=== PATIENT | female | born 1950 | race Caucasian/White ===

== ENCOUNTER → 2018-05-30 | Outpatient (CLI) | payer MEDICARE, OTHER ==
[~2018-05-30] MED LIST: BECL8.7A6 INH; DULO30CA2 PO; ESOM40CA PO; MECL25TA2 PO; METH4TAB PO; METO25TA4 PO; MONT10TA9 PO; OMEG1CAP34 PO; ONDA4TAB10 PO; RALO60TA PO; TRAM50TA2 PO
== END | disposition home or self-care (01) ==
LOC: CFH 11:38
PROVIDERS: ATTEND Registered Nurse General Practice
DX: Z12.31 Encounter for screening mammogram for malignant neoplasm of breast (principal); Z12.2 Encounter for screening for malignant neoplasm of respiratory organs; R91.8 Other nonspecific abnormal finding of lung field; R59.1 Generalized enlarged lymph nodes; Z87.891 Personal history of nicotine dependence; J44.9 Chronic obstructive pulmonary disease, unspecified; M79.7 Fibromyalgia
CPT/HCPCS: 77063; 77067; G0297

== ENCOUNTER 2018-06-05 11:04 | Day surgery (SDC) | payer MEDICARE, OTHER ==
[~2018-06-05] VITALS: Ht 168.9 cm; Wt 71.6 kg
[2018-06-05] MEDS ORDERED: SODIUM CHLORIDE 0.9% 1,000 ML IV SCH (11:59)
[2018-06-05] MEDS ORDERED: FENTANYL PF 100 MCG/2ML ONE (12:05)
[2018-06-05] MEDS ORDERED: MIDAZOLAM 1 MG/ML, 5ML ONE (12:05)
[2018-06-05 12:06] VITALS: BP 117/80
[2018-06-05] MEDS ORDERED: PLEASE ENTER HEIGHT AND WEIGHT MC SCH (12:30)
[2018-06-05 12:44] LABS: BASOPHILS # (AUTO) 0.07 x10^3/uL (0-0.1); BASOPHILS % (AUTO) 1 % (0-1); EOSINOPHILS # (AUTO) 0.09 x10^3/uL (0-0.4); EOSINOPHILS % (AUTO) 1 % (1-7); LYMPHOCYTES % (AUTO) 20 % (22-44); MD NO; MEAN CORPUSCULAR HEMOGLOBIN 29.9 pg (27.0-34.8); MEAN CORPUSCULAR HGB CONC 34.1 g/dL (32.4-35.8); MEAN CORPUSCULAR VOLUME 87.4 fL (80-100); MEAN PLATELET VOLUME 7.7 fL (7.4-10.4); MONOCYTES # (AUTO) 0.73 x10^3/uL (0.2-0.8); MONOCYTES % (AUTO) 8 % (2-9); NEUTROPHILS % (AUTO) 71 % (42-75); PLATELET COUNT 462 x10^3/uL (130-400); RED BLOOD COUNT 4.71 x10^6/uL (3.82-5.3); RED CELL DISTRIBUTION WIDTH 16.9 % (9.6-15.2)
[2018-06-05 12:58] LABS: INTERNATIONAL NORMALIZED RATIO 1.03 (0.93-1.1); PROTHROMBIN TIME 10.7 Seconds (9.6-11.5)
[2018-06-05] MEDS ORDERED: LIDOCAINE 4% TOPICAL SOLUTION 50 ML ONE (15:35)
[2018-06-05] MEDS ORDERED: LIDOCAINE GEL 2%, 5ML ONE (15:35)
[2018-06-05] MEDS ORDERED: LIDOCAINE 2%, 20ML ONE (15:35)
== END 2018-06-05 16:50 | disposition home or self-care (01) ==
LOC: OUT 11:04
PROVIDERS: ATTEND Internal Medicine
DX: R91.8 Other nonspecific abnormal finding of lung field (principal); R04.2 Hemoptysis; E78.00 Pure hypercholesterolemia, unspecified; I10 Essential (primary) hypertension; F32.9 Major depressive disorder, single episode, unspecified; G47.30 Sleep apnea, unspecified; K21.9 Gastro-esophageal reflux disease without esophagitis; F41.9 Anxiety disorder, unspecified; F17.210 Nicotine dependence, cigarettes, uncomplicated; J45.909 Unspecified asthma, uncomplicated; Z87.39 Personal history of other diseases of the musculoskeletal system and connective tissue; Z86.73 Personal history of transient ischemic attack (TIA), and cerebral infarction without residual deficits; Z87.442 Personal history of urinary calculi; Z88.1 Allergy status to other antibiotic agents; Z88.8 Allergy status to other drugs, medicaments and biological substances; Z79.899 Other long term (current) drug therapy
CPT/HCPCS: 31625; 36415; 85025; 85610; 85730; 88172; 88173; 88305; 99152; 99153; J2250; J3010; J3490; 31622

== ENCOUNTER → 2018-06-07 | Outpatient (CLI) | payer MEDICARE, OTHER ==
[~2018-06-07] MED LIST changes: +TRIA1CAP3 PO
== END | disposition home or self-care (01) ==
LOC: CARD 12:47
PROVIDERS: ATTEND Internal Medicine
DX: J44.9 Chronic obstructive pulmonary disease, unspecified (principal)
CPT/HCPCS: 94060; 94726; 94729

== ENCOUNTER 2018-06-09 09:39 | Day surgery (SDC) | payer MEDICARE, OTHER ==
[~2018-06-09] VITALS: Ht 167.6 cm; Wt 71.0 kg
[~2018-06-09 09:39] MED LIST changes: -TRIA1CAP3 PO
[2018-06-09] MEDS ORDERED: LACTATED RINGERS 1,000 ML IV SCH (10:07)
[2018-06-09 10:08] VITALS: BP 95/66
[2018-06-09] MEDS ORDERED: TRIA1CAP3 PO (10:57)
[2018-06-09] MEDS ORDERED: MIDAZOLAM 1 MG/ML, 2ML ONE (11:40)
[2018-06-09] MEDS ORDERED: FENTANYL PF 250 MCG/5ML ONE (11:40)
[2018-06-09] MEDS ORDERED: SUGAMMADEX 200 MG/2 ML IVPush ONE (13:00)
[2018-06-09] MEDS ORDERED: MEPERIDINE/PF 25MG/0.5ML IVPush PRN (14:00)
[2018-06-09] MEDS ORDERED: FENTANYL PF 100 MCG/2ML IV PRN (14:00)
[2018-06-09] MEDS ORDERED: PROMETHAZINE 25 MG/ML, 1ML IV PRN (14:00)
[2018-06-09] MEDS ORDERED: OXYcodone 5 MG/5 ML ORAL.SOL UDC PO PRN (14:00)
[2018-06-09] MEDS ORDERED: HYDROmorphone 1 MG/ML, 1ML IV PRN (14:00)
[2018-06-09] MEDS ORDERED: KETOROLAC 30 MG/1 ML IV PRN (14:00)
[2018-06-09] MEDS ORDERED: LABETALOL 5MG/ML, 20ML IV PRN (14:00)
[2018-06-09] MEDS ORDERED: ALBUTEROL SULFATE 2.5 MG/3 ML NPPB PRN (14:00)
[2018-06-09] MEDS ORDERED: hydrALAzine 20 MG/ML, 1ML IV PRN (14:00)
[2018-06-09] MEDS ORDERED: ACETAMINOPHEN 325 MG TABLET PO PRN (14:00)
[2018-06-09] MEDS ORDERED: ALBUTEROL SULFATE 2.5 MG/3 ML ONE (14:15)
[2018-06-09] MEDS ORDERED: ROCURONIUM 10MG/ML,5ML ONE (15:37)
[2018-06-09] MEDS ORDERED: DEXAMETHASONE 4 MG/ML, 1ML ONE (15:37)
[2018-06-09] MEDS ORDERED: SUCCINYLCHOLINE 20 MG/ML, 10ML ONE (15:37)
[2018-06-09] MEDS ORDERED: PROPOFOL 10 MG/ML, 20ML ONE (15:37)
[2018-06-09] MEDS ORDERED: ONDANSETRON 2MG/ML, 2ML ONE (15:37)
[2018-06-09] MEDS ORDERED: METOPROLOL 1 MG/ML, 5ML ONE (15:37)
== END 2018-06-09 17:45 | disposition home or self-care (01) ==
LOC: OUT 09:39
PROVIDERS: ATTEND Internal Medicine
DX: C34.11 Malignant neoplasm of upper lobe, right bronchus or lung (principal); E11.9 Type 2 diabetes mellitus without complications; E78.5 Hyperlipidemia, unspecified; I10 Essential (primary) hypertension; E11.40 Type 2 diabetes mellitus with diabetic neuropathy, unspecified; J45.909 Unspecified asthma, uncomplicated; G47.30 Sleep apnea, unspecified; K21.9 Gastro-esophageal reflux disease without esophagitis; F32.9 Major depressive disorder, single episode, unspecified; F41.9 Anxiety disorder, unspecified; E78.00 Pure hypercholesterolemia, unspecified; Z98.51 Tubal ligation status; Z98.42 Cataract extraction status, left eye; Z98.41 Cataract extraction status, right eye; Z98.890 Other specified postprocedural states; Z87.442 Personal history of urinary calculi; Z86.73 Personal history of transient ischemic attack (TIA), and cerebral infarction without residual deficits; Z87.891 Personal history of nicotine dependence; Z79.899 Other long term (current) drug therapy; Z87.39 Personal history of other diseases of the musculoskeletal system and connective tissue
CPT/HCPCS: 31627; 31628; 31629; 71045; 88172; 88173; 88305; 88341; 88342; 93005; 94640; J0330; J1100; J2250; J2405; J2704; J3010; J7120; J7613; 31632; G0461

== ENCOUNTER → 2018-06-09 | Outpatient (CLI) | payer MEDICARE, OTHER ==
[2018-06-09 12:54] LABS: BASOPHILS # (AUTO) 0.03 x10^3/uL (0-0.1); BASOPHILS % (AUTO) 0 % (0-1); EOSINOPHILS # (AUTO) 0.18 x10^3/uL (0-0.4); EOSINOPHILS % (AUTO) 2 % (1-7); LYMPHOCYTES # (AUTO) 1.59 x10^3/uL (1-3.4); LYMPHOCYTES % (AUTO) 20 % (22-44); MD NO; MEAN CORPUSCULAR HEMOGLOBIN 29.5 pg (27.0-34.8); MEAN CORPUSCULAR HGB CONC 33.2 g/dL (32.4-35.8); MEAN PLATELET VOLUME 8.7 fL (7.4-10.4); MONOCYTES # (AUTO) 0.69 x10^3/uL (0.2-0.8); MONOCYTES % (AUTO) 9 % (2-9); NEUTROPHILS # (AUTO) 5.55 x10^3/uL (1.8-6.8); NEUTROPHILS % (AUTO) 69 % (42-75); PLATELET COUNT 471 x10^3/uL (130-400); RED BLOOD COUNT 4.51 x10^6/uL (3.82-5.3); RED CELL DISTRIBUTION WIDTH 17.4 % (9.6-15.2)
[2018-06-09 12:56] LABS: CHLORIDE 103 mmol/L (98-107)
[2018-06-09 13:13] LABS: ALANINE AMINOTRANSFERASE 19 U/L (12-78); ALBUMIN 3.3 g/dL (3.4-5.0); ALKALINE PHOSPHATASE 74 U/L (45-117); ANION GAP 11 mmol/L (5-15); BILIRUBIN,TOTAL 0.8 mg/dL (0.2-1.0); CALCIUM 9.2 mg/dL (8.5-10.1); CHOL/HDL RATIO 3.6; CHOLESTEROL, TOTAL 182 mg/dL (140-239); CREATININE 1.33 mg/dL (0.55-1.02); HDL CHOL % 27 % (28-40); HDL CHOLESTEROL (DIRECT) 50 mg/dL (40-60); LDL CHOLESTEROL,CALCULATED 105 mg/dL (54-169); LDL/HDL RATIO 2.1 (0.5-3.0); TOTAL PROTEIN 7.4 g/dL (6.4-8.2); TRIGLYCERIDES 136 mg/dL (50-200); VLDL CHOLESTEROL 27 mg/dL (0-25)
[2018-06-09 13:15] LABS: HEMOGLOBIN A1C 5.8 % (4.2-6.3)
== END | disposition home or self-care (01) ==
LOC: CFH 08:25
PROVIDERS: ATTEND Internal Medicine
DX: J18.8 Other pneumonia, unspecified organism (principal); R91.8 Other nonspecific abnormal finding of lung field; R59.0 Localized enlarged lymph nodes; J44.9 Chronic obstructive pulmonary disease, unspecified; Z79.899 Other long term (current) drug therapy
CPT/HCPCS: 36415; 71250; 80053; 80061; 82043; 82306; 83036; 84443; 85025

== ENCOUNTER → 2018-06-15 | Outpatient (CLI) | payer MEDICARE, OTHER ==
[~2018-06-15] MED LIST changes: +TRIA1CAP3 PO
== END | disposition home or self-care (01) ==
LOC: PETCFH 08:17
PROVIDERS: ATTEND Internal Medicine
DX: C79.51 Secondary malignant neoplasm of bone (principal); C78.7 Secondary malignant neoplasm of liver and intrahepatic bile duct; C77.1 Secondary and unspecified malignant neoplasm of intrathoracic lymph nodes; C34.11 Malignant neoplasm of upper lobe, right bronchus or lung; R91.8 Other nonspecific abnormal finding of lung field
CPT/HCPCS: 78815; A9552

== ENCOUNTER → 2018-06-21 | Outpatient (CLI) | payer MEDICARE, OTHER ==
[~2018-06-21] MED LIST changes: +GADOBUTROL 7.5 MMOL/7.5 ML PFS ONE
== END | disposition home or self-care (01) ==
LOC: RAD 12:40
PROVIDERS: ATTEND Nurse Practitioner
DX: R91.8 Other nonspecific abnormal finding of lung field (principal); J44.9 Chronic obstructive pulmonary disease, unspecified; Z88.2 Allergy status to sulfonamides; Z87.891 Personal history of nicotine dependence
CPT/HCPCS: 70553; A9585

== ENCOUNTER → 2018-06-26 | Outpatient (CLI) | payer MEDICARE, OTHER ==
[~2018-06-26] MED LIST changes: -GADOBUTROL 7.5 MMOL/7.5 ML PFS ONE
== END | disposition home or self-care (01) ==
LOC: ROC 07:29
PROVIDERS: ATTEND Radiology Radiation Oncology
DX: C34.90 Malignant neoplasm of unspecified part of unspecified bronchus or lung (principal); J44.9 Chronic obstructive pulmonary disease, unspecified; K21.9 Gastro-esophageal reflux disease without esophagitis; E78.5 Hyperlipidemia, unspecified; Z88.2 Allergy status to sulfonamides
CPT/HCPCS: G0463

== ENCOUNTER 2018-06-28 07:04 | Day surgery (SDC) | payer MEDICARE, OTHER ==
[~2018-06-28] VITALS: Ht 167.6 cm; Wt 70.7 kg
[2018-06-28] MEDS ORDERED: SODIUM CHLORIDE 0.9% 1,000 ML IV SCH (07:41)
[2018-06-28 07:45] VITALS: BP 106/71
[2018-06-28] MEDS ORDERED: PLEASE ENTER HEIGHT AND WEIGHT MC SCH (08:00)
[2018-06-28] MEDS ORDERED: FENTANYL PF 100 MCG/2ML ONE (08:04)
[2018-06-28] MEDS ORDERED: NALOXONE 1 MG/ML, 2ML ONE (08:04)
[2018-06-28] MEDS ORDERED: FLUMAZENIL 0.1 MG/1 ML, 5ML ONE (08:04)
[2018-06-28] MEDS ORDERED: MIDAZOLAM 1 MG/ML, 5ML ONE (08:04)
[2018-06-28] MEDS ORDERED: LIDOCAINE-MPF 2%, 2ML ONE (08:10)
== END 2018-06-28 12:00 | disposition home or self-care (01) ==
LOC: OUT 07:04
PROVIDERS: ATTEND Nurse Practitioner
DX: C34.91 Malignant neoplasm of unspecified part of right bronchus or lung (principal); F32.9 Major depressive disorder, single episode, unspecified; E11.9 Type 2 diabetes mellitus without complications; I10 Essential (primary) hypertension; G62.9 Polyneuropathy, unspecified; J44.9 Chronic obstructive pulmonary disease, unspecified; K21.9 Gastro-esophageal reflux disease without esophagitis; F41.9 Anxiety disorder, unspecified; E78.00 Pure hypercholesterolemia, unspecified; F17.210 Nicotine dependence, cigarettes, uncomplicated; Z87.39 Personal history of other diseases of the musculoskeletal system and connective tissue; Z88.1 Allergy status to other antibiotic agents; Z88.8 Allergy status to other drugs, medicaments and biological substances; Z87.891 Personal history of nicotine dependence; Z87.01 Personal history of pneumonia (recurrent); Z79.899 Other long term (current) drug therapy; Z98.42 Cataract extraction status, left eye; Z98.41 Cataract extraction status, right eye; Z98.51 Tubal ligation status; Z88.2 Allergy status to sulfonamides
CPT/HCPCS: 32405; 71045; 77012; 88305; 99156; 99157; J2250; J3010; J3490; J2310

== ENCOUNTER → 2018-07-06 | Outpatient (CLI) | payer MEDICARE, OTHER ==
[~2018-07-06] MED LIST changes: +GADOBUTROL 10 MMOL/10 ML VIAL ONE
== END | disposition home or self-care (01) ==
LOC: CFH 08:15
PROVIDERS: ATTEND Radiology Radiation Oncology
DX: M51.34 Other intervertebral disc degeneration, thoracic region (principal); D18.09 Hemangioma of other sites; I10 Essential (primary) hypertension
CPT/HCPCS: 72157; A9585

== ENCOUNTER → 2018-07-24 | Outpatient (CLI) | payer MEDICARE, OTHER ==
[~2018-07-24] MED LIST changes: +AMOX1TAB64 PO; +CHOL500045 PO; +DOXY100C2 PO; +FOLI0.4T2 PO; -GADOBUTROL 10 MMOL/10 ML VIAL ONE; +NORT10CA PO; +OSIM80TA PO; +PREG25CA PO
== END | disposition home or self-care (01) ==
LOC: EDSTATUS 07-09 12:49 → ROC 13:00
PROVIDERS: ATTEND Radiology Radiation Oncology
DX: C79.51 Secondary malignant neoplasm of bone (principal); C34.90 Malignant neoplasm of unspecified part of unspecified bronchus or lung; Z88.2 Allergy status to sulfonamides
CPT/HCPCS: G0463

== ENCOUNTER → 2018-08-04 | Outpatient (CLI) | payer MEDICARE, OTHER ==
[2018-08-04 15:58] LABS: ALBUMIN 2.9 g/dL (3.4-5.0); ANION GAP 10 mmol/L (5-15); CALCIUM 7.9 mg/dL (8.5-10.1); CHLORIDE 94 mmol/L (98-107)
[2018-08-04 16:11] LABS: ALANINE AMINOTRANSFERASE 14 U/L (12-78); ALKALINE PHOSPHATASE 78 U/L (45-117); BILIRUBIN,TOTAL 0.6 mg/dL (0.2-1.0); CREATININE 1.59 mg/dL (0.55-1.02); TOTAL PROTEIN 7.1 g/dL (6.4-8.2)
== END | disposition home or self-care (01) ==
LOC: CFH 12:45
PROVIDERS: ATTEND Internal Medicine Hematology & Oncology
DX: Z51.12 Encounter for antineoplastic immunotherapy (principal); C34.11 Malignant neoplasm of upper lobe, right bronchus or lung; C79.51 Secondary malignant neoplasm of bone; C78.7 Secondary malignant neoplasm of liver and intrahepatic bile duct; J44.9 Chronic obstructive pulmonary disease, unspecified; I10 Essential (primary) hypertension; Z87.891 Personal history of nicotine dependence
CPT/HCPCS: 36415; 80053; 84443

== ENCOUNTER → 2018-08-04 | Outpatient (CLI) | payer MEDICARE, OTHER ==
[~2018-08-04] MED LIST changes: -AMOX1TAB64 PO; -DOXY100C2 PO; -FOLI0.4T2 PO; -OSIM80TA PO
== END | disposition home or self-care (01) ==
LOC: STAR 13:13
PROVIDERS: ATTEND Nurse Practitioner Family
DX: C34.11 Malignant neoplasm of upper lobe, right bronchus or lung (principal); C79.51 Secondary malignant neoplasm of bone; C78.7 Secondary malignant neoplasm of liver and intrahepatic bile duct; J44.9 Chronic obstructive pulmonary disease, unspecified
CPT/HCPCS: 93005

== ENCOUNTER 2018-08-18 16:24 | Inpatient (IN) | payer MEDICARE, OTHER ==
[~2018-08-18] VITALS: Ht 167.6 cm; Wt 73.5 kg
[2018-08-18 16:52] LABS: BASOPHILS # (AUTO) 0.06 x10^3/uL (0-0.1); BASOPHILS % (AUTO) 1 % (0-1); EOSINOPHILS # (AUTO) 0.13 x10^3/uL (0-0.4); EOSINOPHILS % (AUTO) 2 % (1-7); LYMPHOCYTES # (AUTO) 1.33 x10^3/uL (1-3.4); LYMPHOCYTES % (AUTO) 23 % (22-44); MD NO; MEAN CORPUSCULAR HEMOGLOBIN 29.6 pg (27.0-34.8); MEAN CORPUSCULAR HGB CONC 34.1 g/dL (32.4-35.8); MEAN CORPUSCULAR VOLUME 86.6 fL (80-100); MEAN PLATELET VOLUME 7.2 fL (7.4-10.4); MONOCYTES # (AUTO) 0.75 x10^3/uL (0.2-0.8); MONOCYTES % (AUTO) 13 % (2-9); NEUTROPHILS % (AUTO) 61 % (42-75); PLATELET COUNT 269 x10^3/uL (130-400); RED CELL DISTRIBUTION WIDTH 14.3 % (9.6-15.2)
[2018-08-18 17:02] LABS: ALBUMIN 3.5 g/dL (3.4-5.0); ANION GAP 5 mmol/L (5-15); CALCIUM 8.3 mg/dL (8.5-10.1); CHLORIDE 98 mmol/L (98-107); CREATININE 1.43 mg/dL (0.55-1.02)
[2018-08-18] MEDS ORDERED: SODIUM CHLORIDE 0.9% 1,000ML IVBOLUS ONE (18:00)
[2018-08-18] MEDS ORDERED: VANCOMYCIN PER PHARMACY MC ONE (20:30)
[2018-08-18] MEDS ORDERED: PIPERACILLIN/TAZO/PMX 3.375GM 50 ML IVPB ONE (20:30)
[2018-08-18] MEDS ORDERED: PHARMACOKINETIC CONSULTATION MC ONE ×2 (20:30→22:00)
[2018-08-18] MEDS ORDERED: VANCOMYCIN 1,400 MG in SODIUM CHLORIDE 0.9% 250 ML IV ONE (20:30)
[2018-08-18] MEDS ORDERED: SODIUM CHLORIDE 0.9% 1,000 ML IV SCH (20:33)
[2018-08-18] MEDS ORDERED: DOXY100C2 PO (20:54)
[2018-08-18] MEDS ORDERED: OSIM80TA PO (20:54)
[2018-08-18] MEDS ORDERED: FOLI0.4T2 PO (20:54)
[2018-08-18] MEDS ORDERED: PREGABALIN 25 MG CAPSULE PO SCH (21:00)
[2018-08-18] MEDS ORDERED: ONDANSETRON 2MG/ML, 2ML IVPush PRN (21:00)
[2018-08-18] MEDS ORDERED: HYDROcodone/APAP 5/325 TABLET PO PRN (21:00)
[2018-08-18] MEDS ORDERED: ACETAMINOPHEN 325 MG TABLET PO PRN (21:00)
[2018-08-18] MEDS ORDERED: morphine SULFATE 10 MG/ML, 1ML IVPush PRN (21:00)
[2018-08-18] MEDS ORDERED: GUAIFENESIN/COD200MG-20MG/10ML LIQUID PO PRN (21:00)
[2018-08-18] MEDS ORDERED: DOCUSATE 100 MG CAPSULE PO PRN (21:00)
[2018-08-18] MEDS ORDERED: VANCOMYCIN PER PHARMACY MC PRN (21:00)
[2018-08-18] MEDS ORDERED: POLYETHYLENE GLYCOL 17 GM PACKET PO PRN (21:00)
[2018-08-18 21:30] VITALS: BP 126/75
[2018-08-18] MEDS ORDERED: PHARMACOKINETIC MONITORING MC PRN (22:00)
[2018-08-18] MEDS ORDERED: DIPHENHYDRAMINE 50 MG/ML, 1ML IVPush ONE (22:30)
[2018-08-18] MEDS: FLUTICASONE FUROATE 200MCG/INH INH SCH (23:07)
[2018-08-18] MEDS: PREGABALIN 25 MG CAPSULE PO SCH (23:07)
[2018-08-18] MEDS: PIPERACILLIN/TAZO/PMX 3.375GM 50 ML IV SCH (23:09)
[2018-08-18] MEDS: FAMOTIDINE 20 MG TABLET PO SCH (23:09)
[2018-08-19 00:15] VITALS: BP 110/60
[2018-08-19 04:54] LABS: ANION GAP 6 mmol/L (5-15); CALCIUM 7.9 mg/dL (8.5-10.1); CHLORIDE 106 mmol/L (98-107)
[2018-08-19 04:55] LABS: CREATININE 1.24 mg/dL (0.55-1.02)
[2018-08-19] MEDS: PIPERACILLIN/TAZO/PMX 3.375GM 50 ML IV SCH ×4 (04:59→23:14)
[2018-08-19] MEDS ORDERED: OMNIPAQUE 350 MG/ML, 100ML BOTTLE ONE (05:34)
[2018-08-19 06:55] VITALS: BP 95/57
[2018-08-19 08:49] VITALS: BP 107/65
[2018-08-19] MEDS: METOPROLOL TARTRATE 25 MG TABLET PO SCH (08:53)
[2018-08-19] MEDS: FLUTICASONE FUROATE 200MCG/INH INH SCH (08:53)
[2018-08-19] MEDS: DULOXETINE 30 MG CAPSULE.DR PO SCH (08:53)
[2018-08-19] MEDS: SENNA/DOCUSATE TABLET PO SCH (08:54)
[2018-08-19] MEDS: NORTRIPTYLINE 10 MG CAPSULE PO SCH (08:54)
[2018-08-19] MEDS: FAMOTIDINE 20 MG TABLET PO SCH ×2 (08:54→21:46)
[2018-08-19 12:31] VITALS: BP 98/64
[2018-08-19] MEDS: ALBUTEROL SULFATE 2.5 MG/3 ML NPPB SCH ×2 (16:35→19:46)
[2018-08-19 18:11] LABS: CLOSTRIDIUM DIFFICILE ANTIGEN NEGATIVE; CLOSTRIDIUM DIFFICILE TOXIN NEGATIVE (Negative)
[2018-08-19 20:37] VITALS: BP 109/65
[2018-08-19] MEDS ORDERED: PREGABALIN 25 MG CAPSULE PO SCH (21:00)
[2018-08-19] MEDS: PREGABALIN 25 MG CAPSULE PO SCH (21:46)
[2018-08-20 02:22] VITALS: BP 107/61
[2018-08-20] MEDS: PIPERACILLIN/TAZO/PMX 3.375GM 50 ML IV SCH ×4 (05:00→22:50)
[2018-08-20 05:24] LABS: BASOPHILS # (AUTO) 0.05 x10^3/uL (0-0.1); BASOPHILS % (AUTO) 1 % (0-1); EOSINOPHILS # (AUTO) 0.09 x10^3/uL (0-0.4); EOSINOPHILS % (AUTO) 2 % (1-7); LYMPHOCYTES # (AUTO) 0.96 x10^3/uL (1-3.4); LYMPHOCYTES % (AUTO) 20 % (22-44); MD NO; MEAN CORPUSCULAR HEMOGLOBIN 29.7 pg (27.0-34.8); MEAN CORPUSCULAR HGB CONC 33.7 g/dL (32.4-35.8); MEAN CORPUSCULAR VOLUME 88.2 fL (80-100); MEAN PLATELET VOLUME 7.5 fL (7.4-10.4); MONOCYTES # (AUTO) 0.59 x10^3/uL (0.2-0.8); MONOCYTES % (AUTO) 13 % (2-9); NEUTROPHILS # (AUTO) 3.04 x10^3/uL (1.8-6.8); NEUTROPHILS % (AUTO) 64 % (42-75); PLATELET COUNT 217 x10^3/uL (130-400); RED BLOOD COUNT 3.23 x10^6/uL (3.82-5.3)
[2018-08-20 05:29] LABS: ALBUMIN 2.7 g/dL (3.4-5.0); ANION GAP 10 mmol/L (5-15); CALCIUM 8.3 mg/dL (8.5-10.1); CHLORIDE 107 mmol/L (98-107)
[2018-08-20 07:00] VITALS: BP 92/56
[2018-08-20] MEDS: ALBUTEROL SULFATE 2.5 MG/3 ML NPPB SCH ×3 (09:00→19:03)
[2018-08-20] MEDS ORDERED: [UNRECOGNIZED DRUG - REMARK] MC SCH (09:00)
[2018-08-20] MEDS: SENNA/DOCUSATE TABLET PO SCH (09:38)
[2018-08-20] MEDS: NORTRIPTYLINE 10 MG CAPSULE PO SCH (09:38)
[2018-08-20] MEDS: FAMOTIDINE 20 MG TABLET PO SCH ×2 (09:38→19:35)
[2018-08-20] MEDS: METOPROLOL TARTRATE 25 MG TABLET PO SCH (09:38)
[2018-08-20] MEDS: FLUTICASONE FUROATE 200MCG/INH INH SCH (09:39)
[2018-08-20] MEDS: DULOXETINE 30 MG CAPSULE.DR PO SCH (09:39)
[2018-08-20] MEDS: VANCOMYCIN 1,400 MG in SODIUM CHLORIDE 0.9% 250 ML IV SCH (09:43)
[2018-08-20] MEDS ORDERED: TAGRISSO 80 MG PO SCH (10:00)
[2018-08-20 12:26] VITALS: BP 115/68
[2018-08-20] MEDS: CALCIUM CARBONATE 500 MG TAB.CHEW PO PRN (17:21)
[2018-08-20] MEDS: TAGRISSO 80 MG PO SCH (18:08)
[2018-08-20 19:16] VITALS: BP 119/70
[2018-08-20 19:20] VITALS: BP 142/85
[2018-08-20] MEDS: PREGABALIN 25 MG CAPSULE PO SCH (19:35)
[2018-08-20 21:44] VITALS: BP 119/70
[2018-08-21 04:22] VITALS: BP 120/71
[2018-08-21] MEDS: PIPERACILLIN/TAZO/PMX 3.375GM 50 ML IV SCH ×4 (04:47→23:24)
[2018-08-21 04:59] LABS: BASOPHILS # (AUTO) 0.05 x10^3/uL (0-0.1); BASOPHILS % (AUTO) 1 % (0-1); EOSINOPHILS # (AUTO) 0.13 x10^3/uL (0-0.4); EOSINOPHILS % (AUTO) 3 % (1-7); LYMPHOCYTES # (AUTO) 1.15 x10^3/uL (1-3.4); LYMPHOCYTES % (AUTO) 24 % (22-44); MD NO; MEAN CORPUSCULAR HEMOGLOBIN 29.9 pg (27.0-34.8); MEAN CORPUSCULAR HGB CONC 33.6 g/dL (32.4-35.8); MEAN CORPUSCULAR VOLUME 88.9 fL (80-100); MEAN PLATELET VOLUME 7.6 fL (7.4-10.4); MONOCYTES # (AUTO) 0.59 x10^3/uL (0.2-0.8); MONOCYTES % (AUTO) 12 % (2-9); NEUTROPHILS # (AUTO) 2.98 x10^3/uL (1.8-6.8); NEUTROPHILS % (AUTO) 61 % (42-75); PLATELET COUNT 222 x10^3/uL (130-400); RED BLOOD COUNT 3.17 x10^6/uL (3.82-5.3); RED CELL DISTRIBUTION WIDTH 15.4 % (9.6-15.2)
[2018-08-21 05:11] LABS: ANION GAP 3 mmol/L (5-15); CALCIUM 8.4 mg/dL (8.5-10.1); CHLORIDE 107 mmol/L (98-107)
[2018-08-21 05:12] LABS: CREATININE 1.17 mg/dL (0.55-1.02)
[2018-08-21 07:14] VITALS: BP 100/62
[2018-08-21] MEDS: FLUTICASONE FUROATE 200MCG/INH INH SCH (08:25)
[2018-08-21] MEDS: SENNA/DOCUSATE TABLET PO SCH (08:26)
[2018-08-21] MEDS: DULOXETINE 30 MG CAPSULE.DR PO SCH (08:26)
[2018-08-21] MEDS: NORTRIPTYLINE 10 MG CAPSULE PO SCH (08:26)
[2018-08-21] MEDS: METOPROLOL TARTRATE 25 MG TABLET PO SCH (08:27)
[2018-08-21] MEDS: ALBUTEROL SULFATE 2.5 MG/3 ML NPPB SCH (09:00)
[2018-08-21] MEDS: LACTOBACILLUS CHEW TABLET PO SCH ×3 (10:20→20:59)
[2018-08-21 12:09] VITALS: BP 101/69
[2018-08-21] MEDS: CALCIUM CARBONATE 500 MG TAB.CHEW PO PRN ×2 (17:41→21:05)
[2018-08-21] MEDS: TAGRISSO 80 MG PO SCH (17:57)
[2018-08-21 20:38] VITALS: BP 108/66
[2018-08-21] MEDS: VANCOMYCIN 1,400 MG in SODIUM CHLORIDE 0.9% 250 ML IV SCH (20:59)
[2018-08-21] MEDS: FAMOTIDINE 20 MG TABLET PO SCH (20:59)
[2018-08-21] MEDS: PREGABALIN 25 MG CAPSULE PO SCH (20:59)
[2018-08-22 03:27] VITALS: BP 114/70
[2018-08-22 04:45] LABS: ANION GAP 5 mmol/L (5-15); CALCIUM 8.8 mg/dL (8.5-10.1); CHLORIDE 108 mmol/L (98-107); CREATININE 1.17 mg/dL (0.55-1.02)
[2018-08-22 04:46] LABS: BASOPHILS # (AUTO) 0.05 x10^3/uL (0-0.1); BASOPHILS % (AUTO) 1 % (0-1); EOSINOPHILS # (AUTO) 0.29 x10^3/uL (0-0.4); EOSINOPHILS % (AUTO) 7 % (1-7); LYMPHOCYTES # (AUTO) 1.33 x10^3/uL (1-3.4); LYMPHOCYTES % (AUTO) 29 % (22-44); MD NO; MEAN CORPUSCULAR HEMOGLOBIN 29.9 pg (27.0-34.8); MEAN CORPUSCULAR HGB CONC 33.5 g/dL (32.4-35.8); MEAN CORPUSCULAR VOLUME 89.3 fL (80-100); MEAN PLATELET VOLUME 7.8 fL (7.4-10.4); MONOCYTES # (AUTO) 0.61 x10^3/uL (0.2-0.8); MONOCYTES % (AUTO) 14 % (2-9); NEUTROPHILS # (AUTO) 2.23 x10^3/uL (1.8-6.8); NEUTROPHILS % (AUTO) 49 % (42-75); PLATELET COUNT 216 x10^3/uL (130-400); RED BLOOD COUNT 3.22 x10^6/uL (3.82-5.3); RED CELL DISTRIBUTION WIDTH 15.5 % (9.6-15.2)
[2018-08-22] MEDS: PIPERACILLIN/TAZO/PMX 3.375GM 50 ML IV SCH ×2 (05:15→11:28)
[2018-08-22 07:14] VITALS: BP 118/74
[2018-08-22] MEDS ORDERED: ALBUTEROL SULFATE 2.5 MG/3 ML NPPB PRN (09:00)
[2018-08-22] MEDS: SENNA/DOCUSATE TABLET PO SCH (09:00)
[2018-08-22] MEDS: NORTRIPTYLINE 10 MG CAPSULE PO SCH ×2 (09:00→10:10)
[2018-08-22] MEDS: FLUTICASONE FUROATE 200MCG/INH INH SCH (10:09)
[2018-08-22] MEDS: DULOXETINE 30 MG CAPSULE.DR PO SCH (10:10)
[2018-08-22] MEDS: LACTOBACILLUS CHEW TABLET PO SCH (10:11)
[2018-08-22] MEDS: METOPROLOL TARTRATE 25 MG TABLET PO SCH (10:12)
[2018-08-22] MEDS ORDERED: AMOX1TAB64 PO (10:41)
== END 2018-08-22 13:23 | disposition home or self-care (01) | DRG 682 ==
LOC: ED 18:42 → EDIP 20:02 → 3NW 21:22
PROVIDERS: ADMIT Family Medicine; ATTEND Family Medicine
DX: N17.0 Acute kidney failure with tubular necrosis (principal); J18.9 Pneumonia, unspecified organism; J96.20 Acute and chronic respiratory failure, unspecified whether with hypoxia or hypercapnia; E43 Unspecified severe protein-calorie malnutrition; C34.90 Malignant neoplasm of unspecified part of unspecified bronchus or lung; E87.1 Hypo-osmolality and hyponatremia; J44.0 Chronic obstructive pulmonary disease with (acute) lower respiratory infection; C78.7 Secondary malignant neoplasm of liver and intrahepatic bile duct; C79.51 Secondary malignant neoplasm of bone; Z88.2 Allergy status to sulfonamides; Z88.8 Allergy status to other drugs, medicaments and biological substances; Z68.26 Body mass index [BMI] 26.0-26.9, adult; G62.9 Polyneuropathy, unspecified; I10 Essential (primary) hypertension; K21.9 Gastro-esophageal reflux disease without esophagitis; M79.7 Fibromyalgia; Z82.49 Family history of ischemic heart disease and other diseases of the circulatory system; Z86.73 Personal history of transient ischemic attack (TIA), and cerebral infarction without residual deficits; Z87.891 Personal history of nicotine dependence; Z99.81 Dependence on supplemental oxygen; Z79.899 Other long term (current) drug therapy
CPT/HCPCS: 36415; 71045; 71260; 80048; 82040; 83605; 83735; 85025; 87040; 87070; 87205; 87324; 93005; 94640; 99285; G0378; J2405; J2543; J3370; J7613; Q9967; J1200; J7030; J7050

== ENCOUNTER → 2018-08-21 | Outpatient (CLI) | payer MEDICARE, OTHER ==
[~2018-08-21] MED LIST changes: +AMOX1TAB64 PO; +DOXY100C2 PO; +FOLI0.4T2 PO; +OSIM80TA PO
== END | disposition home or self-care (01) ==
LOC: ROC 07:56
PROVIDERS: ATTEND Radiology Radiation Oncology
DX: Z02.9 Encounter for administrative examinations, unspecified (principal)

== ENCOUNTER → 2018-08-31 | Outpatient (CLI) | payer MEDICARE, OTHER | END | disposition home or self-care (01) | LOC: ROC 11:45 | PROVIDERS: ATTEND Radiology Radiation Oncology | DX: Z08 Encounter for follow-up examination after completed treatment for malignant neoplasm (principal); C79.51 Secondary malignant neoplasm of bone; C34.90 Malignant neoplasm of unspecified part of unspecified bronchus or lung; Z88.2 Allergy status to sulfonamides | CPT/HCPCS: G0463 ==

== ENCOUNTER → 2018-10-09 | Outpatient (CLI) | payer MEDICARE, OTHER | END | disposition home or self-care (01) | LOC: ROC 12:36 | PROVIDERS: ATTEND Radiology Radiation Oncology | DX: Z08 Encounter for follow-up examination after completed treatment for malignant neoplasm (principal); C34.90 Malignant neoplasm of unspecified part of unspecified bronchus or lung; C79.51 Secondary malignant neoplasm of bone | CPT/HCPCS: G0463 ==

== ENCOUNTER → 2018-11-09 | Outpatient (CLI) | payer MEDICARE, OTHER | END | disposition home or self-care (01) | LOC: PETCFH 09:32 | PROVIDERS: ATTEND Internal Medicine Hematology & Oncology | DX: C34.11 Malignant neoplasm of upper lobe, right bronchus or lung (principal); C79.51 Secondary malignant neoplasm of bone; I70.0 Atherosclerosis of aorta; J43.2 Centrilobular emphysema; J98.11 Atelectasis; R91.1 Solitary pulmonary nodule; M85.80 Other specified disorders of bone density and structure, unspecified site; R59.1 Generalized enlarged lymph nodes; C78.02 Secondary malignant neoplasm of left lung; K57.30 Diverticulosis of large intestine without perforation or abscess without bleeding | CPT/HCPCS: 71250; 74176; 78306; A9503 ==

== ENCOUNTER → 2018-11-17 | Outpatient (CLI) | payer MEDICARE, OTHER ==
[2018-11-17 13:18] LABS: CHLORIDE 99 mmol/L (98-107)
[2018-11-17 13:39] LABS: ALANINE AMINOTRANSFERASE 17 U/L (12-78); ALBUMIN 3.6 g/dL (3.4-5.0); ALKALINE PHOSPHATASE 54 U/L (45-117); ANION GAP 7 mmol/L (5-15); BILIRUBIN,TOTAL 0.7 mg/dL (0.2-1.0); CALCIUM 8.9 mg/dL (8.5-10.1); CHOL/HDL RATIO 3.2; CHOLESTEROL, TOTAL 243 mg/dL (140-239); CREATININE 1.71 mg/dL (0.55-1.02); HDL CHOL % 31 % (28-40); HDL CHOLESTEROL (DIRECT) 76 mg/dL (40-60); LDL CHOLESTEROL,CALCULATED 136 mg/dL (54-169); LDL/HDL RATIO 1.8 (0.5-3.0); TOTAL PROTEIN 7.4 g/dL (6.4-8.2); TRIGLYCERIDES 157 mg/dL (50-200); VLDL CHOLESTEROL 31 mg/dL (0-25)
== END | disposition home or self-care (01) ==
LOC: CFH 10:29
PROVIDERS: ATTEND Family Medicine
DX: M81.8 Other osteoporosis without current pathological fracture (principal); E78.5 Hyperlipidemia, unspecified; I10 Essential (primary) hypertension
CPT/HCPCS: 36415; 77080; 80053; 80061

== ENCOUNTER → 2018-12-12 | Outpatient (CLI) | payer MEDICARE, OTHER ==
[~2018-12-12] MED LIST changes: +GADOBUTROL 7.5 MMOL/7.5 ML PFS ONE
== END | disposition home or self-care (01) ==
LOC: CFH 12:32
PROVIDERS: ATTEND Internal Medicine Hematology & Oncology
DX: G93.89 Other specified disorders of brain (principal); C34.11 Malignant neoplasm of upper lobe, right bronchus or lung
CPT/HCPCS: 70553; A9585

== ENCOUNTER → 2019-02-05 | Outpatient (CLI) | payer MEDICARE, OTHER ==
[~2019-02-05] MED LIST changes: -GADOBUTROL 7.5 MMOL/7.5 ML PFS ONE
== END | disposition home or self-care (01) ==
LOC: CVU 12:32
PROVIDERS: ATTEND Internal Medicine Cardiovascular Disease
DX: M79.662 Pain in left lower leg (principal); M79.661 Pain in right lower leg; R60.0 Localized edema; Z85.118 Personal history of other malignant neoplasm of bronchus and lung; Z85.830 Personal history of malignant neoplasm of bone; Z87.891 Personal history of nicotine dependence
CPT/HCPCS: 93922; 93970

== ENCOUNTER 2019-06-20 09:07 | Day surgery (SDC) | payer MEDICARE, OTHER ==
[~2019-06-20] VITALS: Ht 168.9 cm; Wt 66.1 kg
[2019-06-20 10:22] VITALS: BP 146/79
== END 2019-06-20 13:00 | disposition home or self-care (01) ==
LOC: OUT 09:07
PROVIDERS: ATTEND Internal Medicine Gastroenterology
DX: K57.30 Diverticulosis of large intestine without perforation or abscess without bleeding (principal); K64.8 Other hemorrhoids; K21.9 Gastro-esophageal reflux disease without esophagitis; I12.9 Hypertensive chronic kidney disease with stage 1 through stage 4 chronic kidney disease, or unspecified chronic kidney disease; N18.9 Chronic kidney disease, unspecified; J44.9 Chronic obstructive pulmonary disease, unspecified; Z99.81 Dependence on supplemental oxygen; Z88.1 Allergy status to other antibiotic agents
CPT/HCPCS: 45378; 93005; J7120

== ENCOUNTER → 2019-09-28 | Outpatient (CLI) | payer MEDICARE, OTHER ==
[~2019-09-28] MED LIST changes: +DULO60CA7 PO
== END | disposition home or self-care (01) ==
LOC: CFH 09:22
PROVIDERS: ATTEND Internal Medicine Hematology & Oncology
DX: C34.11 Malignant neoplasm of upper lobe, right bronchus or lung (principal); M85.88 Other specified disorders of bone density and structure, other site; J43.2 Centrilobular emphysema; I70.0 Atherosclerosis of aorta; Z87.891 Personal history of nicotine dependence; Z90.710 Acquired absence of both cervix and uterus
CPT/HCPCS: 71250; 74176

== ENCOUNTER 2019-10-09 15:02 | Outpatient (CLI) | payer MEDICARE, OTHER ==
[2019-10-09] MEDS ORDERED: GADOTERATE 7.5 MMOL/15 ML SYR ONE (15:50)
== END 2019-10-09 23:59 | disposition home or self-care (01) ==
LOC: CFH 15:02
PROVIDERS: ATTEND Internal Medicine Hematology & Oncology
DX: C34.11 Malignant neoplasm of upper lobe, right bronchus or lung (principal); G31.89 Other specified degenerative diseases of nervous system; I67.82 Cerebral ischemia; Z87.891 Personal history of nicotine dependence
CPT/HCPCS: 70553; A9575

== ENCOUNTER 2019-11-12 09:56 | Outpatient (CLI) | payer MEDICARE, OTHER ==
[~2019-11-12 09:56] MED LIST changes: +MONT10TA11 PO; -MONT10TA9 PO
== END 2019-11-12 23:59 | disposition home or self-care (01) ==
LOC: CFH 09:56
PROVIDERS: ATTEND Internal Medicine Nephrology
DX: N18.3 Chronic kidney disease, stage 3 (moderate) (principal); Z87.891 Personal history of nicotine dependence
CPT/HCPCS: 76770

== ENCOUNTER 2019-11-28 14:23 | Emergency (ER) | payer MEDICARE, OTHER ==
[~2019-11-28] VITALS: Ht 167.6 cm; Wt 69.0 kg
[~2019-11-28 14:23] MED LIST changes: -MONT10TA11 PO; +MONT10TA9 PO
[2019-11-28 14:25] VITALS: BP 125/45
--- NOTE | 2019-11-28 15:00 | NUR ---
PT STATES SHE SLIPPED AND FELL IN HER SHOWER ON TUESDAY, STATES SHE IS HAVING L RIP PAIN. PT DENIES CP, SOB, DIZZINESS.
== END 2019-11-28 16:22 | disposition home or self-care (01) ==
LOC: ED 16:00
DX: S20.212A Contusion of left front wall of thorax, initial encounter (principal); Z86.73 Personal history of transient ischemic attack (TIA), and cerebral infarction without residual deficits; W19.XXXA Unspecified fall, initial encounter; Y93.89 Activity, other specified; Y92.098 Other place in other non-institutional residence as the place of occurrence of the external cause; Y99.8 Other external cause status
CPT/HCPCS: 99283

== ENCOUNTER → 2020-01-23 | Outpatient (CLI) | payer MEDICARE, OTHER ==
[~2020-01-23] MED LIST changes: +MONT10TA11 PO; -MONT10TA9 PO; +OMNIPAQUE 350 MG/ML, 100ML BOTTLE ONE
== END | disposition home or self-care (01) ==
LOC: RAD 08:51
PROVIDERS: ATTEND Internal Medicine Hematology & Oncology
DX: I70.0 Atherosclerosis of aorta (principal); J43.2 Centrilobular emphysema; R91.8 Other nonspecific abnormal finding of lung field; G95.89 Other specified diseases of spinal cord; C34.11 Malignant neoplasm of upper lobe, right bronchus or lung
CPT/HCPCS: 71260; 74177; 78306; A9503; Q9967

== ENCOUNTER → 2020-03-24 | Outpatient (CLI) | payer MEDICARE, OTHER ==
[~2020-03-24] MED LIST changes: -OMNIPAQUE 350 MG/ML, 100ML BOTTLE ONE
== END | disposition home or self-care (01) ==
LOC: CFH 12:20
PROVIDERS: ATTEND Internal Medicine Cardiovascular Disease
DX: I34.0 Nonrheumatic mitral (valve) insufficiency (principal); I47.1 Supraventricular tachycardia; J43.9 Emphysema, unspecified; E78.5 Hyperlipidemia, unspecified; Z86.73 Personal history of transient ischemic attack (TIA), and cerebral infarction without residual deficits; Z85.118 Personal history of other malignant neoplasm of bronchus and lung
CPT/HCPCS: 93306

== ENCOUNTER → 2020-05-03 | Outpatient (CLI) | payer MEDICARE, OTHER ==
[2020-05-03 13:25] LABS: ALANINE AMINOTRANSFERASE 26 U/L (12-78); ALBUMIN 3.4 g/dL (3.4-5.0); ANION GAP 7 mmol/L (5-15); CALCIUM 8.6 mg/dL (8.5-10.1); CHLORIDE 105 mmol/L (98-107); CREATININE 1.42 mg/dL (0.55-1.02)
[2020-05-03 13:27] LABS: ALKALINE PHOSPHATASE 54 U/L (45-117); BILIRUBIN,TOTAL 0.6 mg/dL (0.2-1.0); TOTAL PROTEIN 7.4 g/dL (6.4-8.2)
== END | disposition home or self-care (01) ==
LOC: LAB 12:33
PROVIDERS: ATTEND Internal Medicine Hematology & Oncology
DX: Z51.12 Encounter for antineoplastic immunotherapy (principal); C34.11 Malignant neoplasm of upper lobe, right bronchus or lung; C78.7 Secondary malignant neoplasm of liver and intrahepatic bile duct; C79.51 Secondary malignant neoplasm of bone; E61.2 Magnesium deficiency; Z79.899 Other long term (current) drug therapy
CPT/HCPCS: 36415; 80053; 83735; 84100

== ENCOUNTER 2020-06-10 09:30 | Outpatient (CLI) | payer MEDICARE, OTHER ==
[2020-06-10] MEDS ORDERED: OMNIPAQUE 350 MG/ML, 100ML BOTTLE ONE (10:30)
== END 2020-06-10 23:59 | disposition home or self-care (01) ==
LOC: RAD 09:30
PROVIDERS: ATTEND Internal Medicine Hematology & Oncology
DX: C79.51 Secondary malignant neoplasm of bone (principal); C34.11 Malignant neoplasm of upper lobe, right bronchus or lung; J43.2 Centrilobular emphysema; J98.11 Atelectasis
CPT/HCPCS: 71260; 74177; 78306; A9503; Q9967

== ENCOUNTER 2020-07-24 07:26 | Day surgery (SDC) | payer MEDICARE, OTHER ==
[~2020-07-24] VITALS: Ht 167.6 cm; Wt 68.9 kg
[2020-07-24] MEDS ORDERED: LACTATED RINGERS 1,000 ML IV SCH (07:52)
[2020-07-24] MEDS ORDERED: CHLORHEXIDINE 15 ML UDC MM ONE (08:00)
[2020-07-24] MEDS ORDERED: [UNRECOGNIZED DRUG - OTHER] IV (08:13)
[2020-07-24] MEDS ORDERED: OSIM80TA PO (08:13)
[2020-07-24] MEDS ORDERED: SUCR1TAB PO (08:13)
[2020-07-24] MEDS ORDERED: PLEASE ENTER HEIGHT AND WEIGHT MC SCH (08:30)
[2020-07-24 08:56] VITALS: BP 139/78
[2020-07-24] MEDS ORDERED: FENTANYL PF 100 MCG/2ML IV PRN (09:30)
[2020-07-24] MEDS ORDERED: ONDANSETRON 2MG/ML, 2ML IVPush PRN (09:30)
[2020-07-24] MEDS ORDERED: DIAZEPAM 5 MG/ML, 2ML IVPush PRN (09:30)
[2020-07-24] MEDS ORDERED: LABETALOL 5MG/ML, 20ML IV PRN (09:30)
[2020-07-24] MEDS ORDERED: EPHEDRINE 50 MG/ML, 1ML IVPush PRN (09:30)
[2020-07-24] MEDS ORDERED: DIPHENHYDRAMINE 50 MG/ML, 1ML IVPush PRN (09:30)
[2020-07-24] MEDS ORDERED: PROPOFOL 10 MG/ML, 50ML ONE (09:42)
[2020-07-24] MEDS ORDERED: PROPOFOL 10 MG/ML, 20ML ONE (09:42)
== END 2020-07-24 11:05 | disposition home or self-care (01) ==
LOC: OUT 07:26
PROVIDERS: ATTEND Internal Medicine Gastroenterology
DX: R10.13 Epigastric pain (principal); Z20.828 Contact with and (suspected) exposure to other viral communicable diseases; R13.19 Other dysphagia; K29.70 Gastritis, unspecified, without bleeding; C34.90 Malignant neoplasm of unspecified part of unspecified bronchus or lung; J44.9 Chronic obstructive pulmonary disease, unspecified; G47.33 Obstructive sleep apnea (adult) (pediatric); N18.9 Chronic kidney disease, unspecified; Z88.2 Allergy status to sulfonamides
CPT/HCPCS: 36415; 43239; 87635; 88305; 93005; J2704; J7120

== ENCOUNTER 2020-08-10 16:00 | Emergency (ER) | payer MEDICARE, OTHER ==
[~2020-08-10] VITALS: Ht 170.2 cm; Wt 69.1 kg
[~2020-08-10 16:00] MED LIST changes: +SUCR1TAB PO; +[UNRECOGNIZED DRUG - OTHER] IV
[2020-08-10] MEDS ORDERED: SODIUM CHLORIDE FLUSH 10ML SYR IVF ONE (16:30)
[2020-08-10 16:52] LABS: BASOPHILS % (AUTO) 1 % (0-1); EOSINOPHILS % (AUTO) 2 % (1-7); LYMPHOCYTES % (AUTO) 24 % (22-44); MEAN CORPUSCULAR HEMOGLOBIN 27.9 pg (27.0-34.8); MEAN CORPUSCULAR HGB CONC 32.8 g/dL (32.4-35.8); MEAN PLATELET VOLUME 7.6 fL (7.4-10.4); MONOCYTES % (AUTO) 11 % (2-9); NEUTROPHILS % (AUTO) 62 % (42-75); PLATELET COUNT 253 x10^3/uL (130-400); RED BLOOD COUNT 3.36 x10^6/uL (3.82-5.3); RED CELL DISTRIBUTION WIDTH 16.8 % (9.6-15.2)
[2020-08-10 16:56] LABS: ALBUMIN 3.2 g/dL (3.4-5.0); ANION GAP 4 mmol/L (5-15); CALCIUM 8.6 mg/dL (8.5-10.1); CHLORIDE 102 mmol/L (98-107); CREATININE 1.49 mg/dL (0.55-1.02)
[2020-08-10 17:08] LABS: MD NO
--- NOTE | 2020-08-10 17:11 | NUR ---
pt in ct at this time.
[2020-08-10] MEDS ORDERED: OMNIPAQUE 350 MG/ML, 75ML BOTTLE ONE (17:19)
--- NOTE | 2020-08-10 17:20 | NUR ---
pt back to room from ct at this time.
[2020-08-10 17:40] VITALS: BP 130/61
== END 2020-08-10 18:15 | disposition home or self-care (01) ==
LOC: ED 16:42
DX: R04.2 Hemoptysis (principal); Z87.891 Personal history of nicotine dependence; Z86.73 Personal history of transient ischemic attack (TIA), and cerebral infarction without residual deficits; Z85.118 Personal history of other malignant neoplasm of bronchus and lung
CPT/HCPCS: 36415; 71275; 80048; 82040; 85025; 99285; Q9967

== ENCOUNTER → 2020-08-27 | Outpatient (CLI) | payer MEDICARE, OTHER | END | disposition home or self-care (01) | LOC: RAD 09:59 | PROVIDERS: ATTEND Internal Medicine Hematology & Oncology | DX: C34.11 Malignant neoplasm of upper lobe, right bronchus or lung (principal) | CPT/HCPCS: 78306; A9503 ==

== ENCOUNTER → 2020-09-04 | Outpatient (CLI) | payer MEDICARE, OTHER | END | disposition home or self-care (01) | LOC: PETCFH 12:38 | PROVIDERS: ATTEND Internal Medicine Hematology & Oncology | DX: C34.11 Malignant neoplasm of upper lobe, right bronchus or lung (principal); C79.51 Secondary malignant neoplasm of bone; C78.01 Secondary malignant neoplasm of right lung; J18.9 Pneumonia, unspecified organism | CPT/HCPCS: 78815; A9552 ==

== ENCOUNTER → 2020-09-08 | Outpatient (CLI) | payer MEDICARE, OTHER ==
[~2020-09-08] MED LIST changes: +GADOTERATE 7.5 MMOL/15 ML VIAL ONE
== END | disposition home or self-care (01) ==
LOC: RAD 12:58
PROVIDERS: ATTEND Internal Medicine Hematology & Oncology
DX: C34.11 Malignant neoplasm of upper lobe, right bronchus or lung (principal); I67.82 Cerebral ischemia; G31.9 Degenerative disease of nervous system, unspecified
CPT/HCPCS: 70553; A9575

== ENCOUNTER → 2020-09-12 | Outpatient (CLI) | payer MEDICARE, OTHER ==
[~2020-09-12] MED LIST changes: -GADOTERATE 7.5 MMOL/15 ML VIAL ONE
== END | disposition home or self-care (01) ==
LOC: ROC 07:27
PROVIDERS: ATTEND Radiology Radiation Oncology
DX: C79.51 Secondary malignant neoplasm of bone (principal); C34.11 Malignant neoplasm of upper lobe, right bronchus or lung; J44.9 Chronic obstructive pulmonary disease, unspecified; Z87.891 Personal history of nicotine dependence; Z86.73 Personal history of transient ischemic attack (TIA), and cerebral infarction without residual deficits
CPT/HCPCS: G0463

== ENCOUNTER 2020-09-26 09:33 | Emergency (ER) | payer MEDICARE, OTHER ==
[~2020-09-26] VITALS: Ht 167.6 cm; Wt 65.9 kg
[2020-09-26] MEDS ORDERED: SODIUM CHLORIDE 0.9% 1,000 ML IV ONE (10:30)
[2020-09-26] MEDS: ONDANSETRON 2MG/ML, 2ML IVPush ONE ×2 (10:30→10:56)
[2020-09-26] MEDS ORDERED: MORPHINE SULFATE 4 MG/ML, 1ML IVPush PRN (10:30)
[2020-09-26] MEDS ORDERED: SODIUM CHLORIDE FLUSH 10ML SYR IVF ONE (10:30)
--- NOTE | 2020-09-26 10:46 | NUR ---
THIS IS A 70 YO F W/ C/O RUQ PAIN X3 MONTHS, WORSE X3 DAYS. PT REPORTS N/V X3 DAYS. PT REPORTS HAD CHEMO TX YESTERDAY. PT RESTING ON GURNEY W/ CALL LIGHT IN REACH AND SIDE RAILS UPX2. HYPERTENSIVE, OTHER VS WDL. RESP EVEN AND UNLABORED, NADN. PIV STARTED AND LABS DRAWN. RAD IN ROOM.
[2020-09-26] MEDS ORDERED: MORPHINE SULFATE 4 MG/ML, 1ML ONE (10:51)
[2020-09-26] MEDS ORDERED: ONDANSETRON 2MG/ML, 2ML ONE (10:51)
[2020-09-26 10:57] LABS: BASOPHILS % (AUTO) 1 % (0-1); EOSINOPHILS % (AUTO) 1 % (1-7); LYMPHOCYTES % (AUTO) 12 % (22-44); MEAN CORPUSCULAR HEMOGLOBIN 27.1 pg (27.0-34.8); MEAN CORPUSCULAR HGB CONC 32.2 g/dL (32.4-35.8); MEAN PLATELET VOLUME 7.7 fL (7.4-10.4); MONOCYTES % (AUTO) 11 % (2-9); NEUTROPHILS % (AUTO) 76 % (42-75); PLATELET COUNT 285 x10^3/uL (130-400); RED BLOOD COUNT 3.97 x10^6/uL (3.82-5.3); RED CELL DISTRIBUTION WIDTH 17.9 % (9.6-15.2)
--- NOTE | 2020-09-26 10:59 | NUR ---
PT MEDICATED PER EMAR.
[2020-09-26 11:03] LABS: ALANINE AMINOTRANSFERASE 17 U/L (12-78); ALBUMIN 3.6 g/dL (3.4-5.0); ANION GAP 5 mmol/L (5-15); CALCIUM 9.3 mg/dL (8.5-10.1); CHLORIDE 102 mmol/L (98-107); CREATININE 1.34 mg/dL (0.55-1.02)
[2020-09-26 11:05] LABS: ALKALINE PHOSPHATASE 64 U/L (45-117); BILIRUBIN,TOTAL 0.6 mg/dL (0.2-1.0); TOTAL PROTEIN 7.7 g/dL (6.4-8.2)
[2020-09-26 11:14] LABS: MD NO
--- NOTE | 2020-09-26 11:18 | NUR ---
PT TO CT.
[2020-09-26] MEDS ORDERED: OMNIPAQUE 350 MG/ML, 100ML BOTTLE ONE (11:27)
--- NOTE | 2020-09-26 11:49 | NUR ---
PT AMBULATED TO THE BR W/ A STEADY GAIT, URINE COLLECTED AND SENT TO LAB. PT REPORTS PAIN IMPROVED FROM MEDS.
[2020-09-26 12:22] LABS: MICROSCOPIC NOT IND
[2020-09-26 12:47] VITALS: BP 163/71
== END 2020-09-26 13:12 | disposition home or self-care (01) ==
LOC: ED 12:10
DX: C80.1 Malignant (primary) neoplasm, unspecified (principal); K59.00 Constipation, unspecified; R10.11 Right upper quadrant pain; R11.2 Nausea with vomiting, unspecified; Z87.891 Personal history of nicotine dependence; Z86.73 Personal history of transient ischemic attack (TIA), and cerebral infarction without residual deficits; Z85.118 Personal history of other malignant neoplasm of bronchus and lung
CPT/HCPCS: 36415; 71045; 74177; 80053; 81003; 83690; 85025; 96374; 96375; 99285; J2270; J2405; J7030; Q9967; 77280; 77387; 77412

== ENCOUNTER 2020-10-10 13:24 | Observation (INO) | payer MEDICARE, OTHER ==
[~2020-10-10] VITALS: Ht 167.6 cm; Wt 60.0 kg
[~2020-10-10 13:24] MED LIST changes: -MONT10TA11 PO; +MONT10TA96 PO
--- NOTE | 2020-10-10 13:26 | NUR ---
Pt brought in by caleb from home with chief complaint of sob & cp since this am. EMS found patient to be in svt or afib- unsure. EMS administered 6 & 12 mg adenosine & 5 mg metoprolol.
--- NOTE | 2020-10-10 13:35 | NUR ---
ROLAND GERBER AT BEDSIDE FOR EVALUATION
[2020-10-10] MEDS ORDERED: DEXL60CA2 PO (13:53)
[2020-10-10] MEDS ORDERED: FOLI-17 PO (13:53)
[2020-10-10] MEDS ORDERED: GABA300C PO (13:53)
[2020-10-10] MEDS ORDERED: SODIUM CHLORIDE 0.9% 1,000ML IVBOLUS ONE (14:00)
[2020-10-10] MEDS ORDERED: SODIUM CHLORIDE FLUSH 10ML SYR IVF ONE (14:00)
[2020-10-10 14:20] LABS: BASOPHILS % (AUTO) 1 % (0-1); EOSINOPHILS % (AUTO) 1 % (1-7); LYMPHOCYTES % (AUTO) 10 % (22-44); MEAN CORPUSCULAR HEMOGLOBIN 27.8 pg (27.0-34.8); MEAN CORPUSCULAR HGB CONC 32.7 g/dL (32.4-35.8); MEAN PLATELET VOLUME 7.2 fL (7.4-10.4); MONOCYTES % (AUTO) 11 % (2-9); NEUTROPHILS % (AUTO) 77 % (42-75); PLATELET COUNT 321 x10^3/uL (130-400); RED BLOOD COUNT 3.85 x10^6/uL (3.82-5.3); RED CELL DISTRIBUTION WIDTH 18.1 % (9.6-15.2)
[2020-10-10 14:22] LABS: MD NO
[2020-10-10 14:27] LABS: ALANINE AMINOTRANSFERASE 10 U/L (12-78); ALBUMIN 3.1 g/dL (3.4-5.0); ANION GAP 7 mmol/L (5-15); CALCIUM 8.2 mg/dL (8.5-10.1); CHLORIDE 108 mmol/L (98-107); CREATININE 1.38 mg/dL (0.55-1.02)
[2020-10-10 14:31] LABS: ALKALINE PHOSPHATASE 60 U/L (45-117); BILIRUBIN,TOTAL 0.5 mg/dL (0.2-1.0); FREE T4 (FREE THYROXINE) 1.02 ng/dL (0.76-1.46); TOTAL PROTEIN 7.1 g/dL (6.4-8.2); TROPONIN I < 0.015 ng/mL (0.000-0.045)
[2020-10-10 14:39] LABS: INTERNATIONAL NORMALIZED RATIO 1.05 (0.93-1.1); PROTHROMBIN TIME 11.1 Seconds (9.6-11.5)
--- NOTE | 2020-10-10 14:46 | NUR ---
N/O FOR CTA. PT GOING TO CT.
[2020-10-10] MEDS ORDERED: OMNIPAQUE 350 MG/ML, 75ML BOTTLE ONE (14:59)
--- NOTE | 2020-10-10 15:26 | NUR ---
PT BACK FROM CT. PT AMBULATED TO RESTROOM WITH STEADY GAIT. PT RECONNECTED TO MONITORING. HR INTERMITTENTLY INCREASES TO 140s, THEN BACK TO LOW 100s. PT RESTING COMFORTABLY ON GURNEY. NADN.
--- NOTE | 2020-10-10 15:43 | NUR ---
ALL RESULTS ARE BACK AT THIS TIME. CHART UP FOR RECHECK.
[2020-10-10] MEDS ORDERED: SODIUM CHLORIDE FLUSH 10ML SYR IVF PRN (16:30)
[2020-10-10] MEDS ORDERED: ASPIRIN 81 MG TABLET CHEW PO ONE (16:30)
[2020-10-10] MEDS ORDERED: ASPIRIN 81 MG TABLET CHEW ONE (16:37)
--- NOTE | 2020-10-10 16:41 | NUR ---
HEAD NECK SURGEON PER JAN. RECEIVED ADMIT ORDERS. PT RESTING COMFORTABLY ON GURNEY. ISAAC.
--- NOTE | 2020-10-10 16:43 | NUR ---
HOSPITALIST AT BEDSIDE.
[2020-10-10] MEDS ORDERED: MELATONIN 5 MG TABLET PO PRN (17:30)
[2020-10-10] MEDS ORDERED: DILTIAZEM 5 MG/ML, 5ML IVPush PRN (17:30)
[2020-10-10] MEDS ORDERED: ONDANSETRON 2MG/ML, 2ML IVPush PRN (17:30)
[2020-10-10] MEDS ORDERED: ONDANSETRON ODT 4 MG PO PRN (17:30)
[2020-10-10] MEDS ORDERED: NITROGLYCERIN 0.4 MG BOTTLE (25 TABS) SL PRN (17:30)
[2020-10-10] MEDS ORDERED: SODIUM CHLORIDE 0.9% 1,000 ML IV SCH (17:30)
[2020-10-10] MEDS ORDERED: LABETALOL 5MG/ML, 20ML IVPush PRN (17:30)
[2020-10-10] MEDS ORDERED: ACETAMINOPHEN 325 MG TABLET PO PRN (17:30)
[2020-10-10] MEDS ORDERED: hydrALAzine 20 MG/ML, 1ML IVPush PRN (17:30)
[2020-10-10] MEDS ORDERED: MAALOX/HYOSCYAMINE/LIDOCAINE 45 ML BTL PO PRN (17:30)
--- NOTE | 2020-10-10 17:44 | NUR ---
BREAK RN- MEAL TRAY PROVIDED
[2020-10-10] MEDS ORDERED: MAGNESIUM HYDROXIDE 8%, 30ML UDC PO PRN (18:00)
--- NOTE | 2020-10-10 18:34 | NUR ---
REPORT GIVEN TO YIMI HUERTA. RTG RM 521-1
[2020-10-10] MEDS ORDERED: GABAPENTIN 300 MG CAPSULE PO SCH (21:00)
[2020-10-10] MEDS ORDERED: FAMOTIDINE 20 MG TABLET PO SCH (21:00)
[2020-10-10 21:31] VITALS: BP 154/79
[2020-10-10] MEDS ORDERED: FAMOTIDINE 40 MG TABLET ONE (21:59)
[2020-10-10] MEDS: METOPROLOL TARTRATE 25 MG TAB PO SCH (22:08)
[2020-10-10] MEDS: HEPARIN 5,000 UNITS/ML, 1ML SQ SCH (22:09)
[2020-10-10 23:29] LABS: TROPONIN I < 0.015 ng/mL (0.000-0.045)
[2020-10-11 01:20] VITALS: BP 155/73
[2020-10-11 01:24] VITALS: BP 162/78
[2020-10-11 01:27] VITALS: BP 148/76
[2020-10-11 02:30] LABS: BASOPHILS % (AUTO) 1 % (0-1); EOSINOPHILS % (AUTO) 2 % (1-7); LYMPHOCYTES % (AUTO) 17 % (22-44); MEAN CORPUSCULAR HEMOGLOBIN 28.1 pg (27.0-34.8); MEAN CORPUSCULAR HGB CONC 33.2 g/dL (32.4-35.8); MEAN PLATELET VOLUME 7.1 fL (7.4-10.4); MONOCYTES % (AUTO) 14 % (2-9); NEUTROPHILS % (AUTO) 66 % (42-75); PLATELET COUNT 267 x10^3/uL (130-400); RED BLOOD COUNT 3.27 x10^6/uL (3.82-5.3)
[2020-10-11 02:34] LABS: MD NO
[2020-10-11 02:38] LABS: ANION GAP 4 mmol/L (5-15); CALCIUM 8.1 mg/dL (8.5-10.1); CHLORIDE 108 mmol/L (98-107); CREATININE 1.25 mg/dL (0.55-1.02)
[2020-10-11 02:43] LABS: TROPONIN I < 0.015 ng/mL (0.000-0.045)
[2020-10-11] MEDS ORDERED: ASPIRIN 81 MG TABLET EC PO SCH (06:00)
[2020-10-11] MEDS: HEPARIN 5,000 UNITS/ML, 1ML SQ SCH ×2 (06:07→10:22)
[2020-10-11] MEDS ORDERED: PANTOPRAZOLE 40MG TABLET PO SCH (07:30)
[2020-10-11] MEDS ORDERED: REGADENOSON 0.4 MG/5 ML SYRINGE ONE (08:24)
[2020-10-11 08:27] VITALS: BP 146/77
[2020-10-11] MEDS ORDERED: POLYETHYLENE GLYCOL 17 GM PACKET PO SCH (09:00)
[2020-10-11] MEDS ORDERED: CHOLECALCIFEROL 5,000u TAB PO SCH (09:00)
[2020-10-11] MEDS ORDERED: DULOXETINE 30 MG CAPSULE.DR PO SCH (09:00)
[2020-10-11] MEDS ORDERED: SENNA/DOCUSATE TABLET PO SCH (09:00)
[2020-10-11] MEDS ORDERED: FOLIC ACID 1 MG TABLET PO SCH (09:00)
[2020-10-11] MEDS: METOPROLOL TARTRATE 25 MG TAB PO SCH (10:23)
[2020-10-11 12:19] VITALS: BP 158/78
[2020-10-11] MEDS ORDERED: METO25TA35 PO (13:53)
== END 2020-10-11 15:10 | disposition home or self-care (01) ==
LOC: ED 14:32 → INTOOBSV 16:09 → EDIP 16:09 → 5SO 18:56 → DCLOUNGE 10-11 15:04
PROVIDERS: ADMIT Hospitalist; ATTEND Hospitalist
DX: I48.20 Chronic atrial fibrillation, unspecified (principal); R07.89 Other chest pain; R10.13 Epigastric pain; K59.00 Constipation, unspecified; C34.90 Malignant neoplasm of unspecified part of unspecified bronchus or lung; N18.30 Chronic kidney disease, stage 3 unspecified; D63.1 Anemia in chronic kidney disease; E78.5 Hyperlipidemia, unspecified; M79.7 Fibromyalgia; Z86.73 Personal history of transient ischemic attack (TIA), and cerebral infarction without residual deficits; Z86.79 Personal history of other diseases of the circulatory system; Z79.899 Other long term (current) drug therapy; Z87.891 Personal history of nicotine dependence; Z90.711 Acquired absence of uterus with remaining cervical stump
CPT/HCPCS: 36415; 71045; 71275; 78452; 80048; 80053; 83735; 84439; 84443; 84484; 85025; 85610; 85730; 93005; 93017; 93306; 93356; 96360; 96361; 96372; 99285; A9502; C9898; G0378; J1644; J2785; J7030; Q9967

== ENCOUNTER 2020-11-14 07:36 | Outpatient (CLI) | payer MEDICARE, OTHER ==
[~2020-11-14 07:36] MED LIST changes: +DEXL60CA2 PO; +FOLI-17 PO; +GABA300C PO; +METO25TA35 PO; +METO50TA6 PO
== END 2020-11-14 23:59 | disposition home or self-care (01) ==
LOC: ROC 07:36
PROVIDERS: ATTEND Radiology Radiation Oncology
DX: Z08 Encounter for follow-up examination after completed treatment for malignant neoplasm (principal); J44.9 Chronic obstructive pulmonary disease, unspecified; E78.5 Hyperlipidemia, unspecified; E11.22 Type 2 diabetes mellitus with diabetic chronic kidney disease; N18.30 Chronic kidney disease, stage 3 unspecified; I48.0 Paroxysmal atrial fibrillation; I48.20 Chronic atrial fibrillation, unspecified; M79.7 Fibromyalgia; Z85.830 Personal history of malignant neoplasm of bone; Z85.05 Personal history of malignant neoplasm of liver; Z79.899 Other long term (current) drug therapy; Z87.891 Personal history of nicotine dependence; Z86.73 Personal history of transient ischemic attack (TIA), and cerebral infarction without residual deficits; Z86.79 Personal history of other diseases of the circulatory system; Z85.118 Personal history of other malignant neoplasm of bronchus and lung
CPT/HCPCS: G0463